=== PATIENT | female | born 1955 | race Caucasian/White ===

== ENCOUNTER 2018-12-11 11:21 | Inpatient (IN) | payer MEDICAID ==
[~2018-12-11] VITALS: Ht 154.9 cm; Wt 72.7 kg
[2018-12-11] MEDS ORDERED: LIDOCAINE 2%HCL (LOCAL ANESTH.) INJ 20ML MDV ONE (13:57)
[2018-12-11] MEDS ORDERED: IOHEXOL 350 MG/ML 100ML IJ ONE ×2 (13:57→14:17)
[2018-12-11] MEDS ORDERED: fentaNYL CITRATE 100 MCG/2 ML VL ONE (14:11)
[2018-12-11] MEDS ORDERED: ANGIOMAX 250 MG VIAL IV ONE (14:11)
[2018-12-11] MEDS ORDERED: SODIUM CHL 0.9% 50 ML ONE (14:11)
[2018-12-11] MEDS ORDERED: MIDAZOLAM HCL 1MG/1ML-2 ML VIAL ONE (14:11)
[2018-12-11] MEDS ORDERED: VERAPAMIL 2.5MG/ML INJ 2ML VIAL IV ONE (14:12)
[2018-12-11] MEDS ORDERED: HEPARIN SODIUM (PORCINE) 5000 UNITS/ML 1ML VIAL ONE (14:14)
[2018-12-11] MEDS ORDERED: ASPirin 325 MG TAB ONE (15:55)
[2018-12-11] MEDS ORDERED: TICAGRELOR 90 MG TAB ONE (15:55)
[2018-12-11] MEDS ORDERED: BACL10TA PO (16:41)
[2018-12-11] MEDS ORDERED: GABA300C10 PO (16:41)
[2018-12-11] MEDS ORDERED: PANT40T PO (16:41)
[2018-12-11] MEDS ORDERED: LISI10TA6 PO (16:41)
[2018-12-11] MEDS ORDERED: METF-371 PO (16:41)
[2018-12-11] MEDS ORDERED: ASPI1TAB19 PO (16:41)
[2018-12-11] MEDS ORDERED: CHOL20009 PO (16:41)
[2018-12-11] MEDS ORDERED: ATOR1TAB PO (16:41)
[2018-12-11] MEDS ORDERED: ERTU15TA PO (16:41)
[2018-12-11] MEDS ORDERED: RANI150C11 PO (16:41)
[2018-12-11] MEDS ORDERED: HYDROcodone-ACET 5/325MG TAB PO PRN (16:45)
[2018-12-11] MEDS ORDERED: DEXTROSE (50%) 50ML SYRG IV PRN (16:45)
[2018-12-11] MEDS ORDERED: MORPHINE SULF INJ 2 MG/ML SYRINGE 1ML IV PRN (16:45)
[2018-12-11] MEDS ORDERED: NITROGLYCERIN 0.4 MG SL TAB SL PRN (16:45)
[2018-12-11] MEDS ORDERED: ACETAMINOPHEN 500 MG TAB PO PRN (16:45)
[2018-12-11] MEDS ORDERED: ONDANSETRON HCL 4 MG/2 ML VIAL IV PRN (16:45)
[2018-12-11] MEDS ORDERED: ZOLPIDEM TARTRATE 5 MG TAB PO PRN (16:45)
[2018-12-11] MEDS: InsuLIN REG 1unit/0.01ml Soln (100units/ml) SC SCH ×2 (17:00→22:00)
--- NOTE | 2018-12-11 17:15 | NUR ---
Telemetry admit from Mail Machine Operator TONY MILLAN admitted to Telemetry unit after SBAR received. Patient oriented to [place], primary RN, unit, room, bed, and unit policies regarding patient care and visiting hours. Patient now on continuous telemetry monitoring, tele box # 1 and telemetry reading on arrival to unit is . Patient placed on bedside oxygen, weighed by bed scale and encouraged to call if they need something. All questions and concerns addressed, patient verbalized understanding.
--- NOTE | 2018-12-11 17:30 | NUR ---
S/P Cardiac Cath Catheter remains in [Right] groin. Patient educated on need to keep leg straight and flat. Patient verbalized understanding. Site assessed for any bleeding, redness or swelling. Pedal pulses on affected leg assessed for positive tissue perfusion. Patient instructed on need to notify staff immediately if any pain, burning or wetness to site, and any lower back pain. Patient educated on new cardiac medications. All questions and concerns addressed, patient verbalized understanding of all education and instruction. See notes for any further.
[2018-12-11] MEDS: SODIUM CHLORIDE 0.9% 1,000 ML IV SCH (17:36)
[2018-12-11] MEDS: ACCU-CHEK COMFORT CURVE STRIP VI SCH ×2 (17:37→22:00)
[2018-12-11 18:09] VITALS: BP 125/57
--- NOTE | 2018-12-11 20:00 | NUR ---
Opening Shift Note Assumed care of patient, awake and alert. No S/S of distress/SOB. Instructed on POC and to call for assist PRN, will continue to monitor for changes Q1hr and PRN. Dressing to right groin clean, dry and intact. Patient complains of pain to the groin. Medicated with Lytle 5/325 mg as ordered. Bed in low position and call light in reach.
[2018-12-11 21:57] VITALS: BP 127/66
[2018-12-11] MEDS ORDERED: BACLOFEN 10 MG TAB PO SCH (22:00)
[2018-12-11] MEDS ORDERED: PATIENTS OWN MEDICATION (Ranitidine Hcl 1 CAP) PO SCH (22:00)
[2018-12-11] MEDS ORDERED: PATIENTS OWN MEDICATION (Atorvastatin Calcium 1 TAB) PO SCH (22:00)
[2018-12-11] MEDS: ATORVASTATIN 20 MG TAB PO SCH (22:06)
[2018-12-11] MEDS: GABAPENTIN 300 MG CAP PO SCH (22:08)
[2018-12-11] MEDS: FAMOTIDINE 20 MG TAB PO SCH (22:09)
[2018-12-11] MEDS: TICAGRELOR 90 MG TAB PO SCH (22:35)
[2018-12-12] MEDS: SODIUM CHLORIDE 0.9% 1,000 ML IV SCH ×3 (02:45→21:37)
[2018-12-12 04:47] VITALS: BP 124/79
[2018-12-12] MEDS: GABAPENTIN 300 MG CAP PO SCH ×3 (06:48→21:32)
[2018-12-12] MEDS: ACCU-CHEK COMFORT CURVE STRIP VI SCH ×4 (06:49→22:15)
[2018-12-12] MEDS: InsuLIN REG 1unit/0.01ml Soln (100units/ml) SC SCH ×4 (06:49→22:16)
[2018-12-12 09:00] VITALS: BP 112/63
[2018-12-12] MEDS: ASPirin-EC 81 mg tab PO SCH (09:23)
[2018-12-12] MEDS: PANTOPRAZOLE 40 MG TAB PO SCH (09:23)
[2018-12-12] MEDS: CHOLECALCIFEROL (VITD3) 1,000 UNIT TAB PO SCH (09:23)
[2018-12-12] MEDS: LISINOPRIL 10 MG TAB PO SCH (09:24)
[2018-12-12] MEDS: STEGLATRO 15 MG PO SCH (09:24)
[2018-12-12] MEDS: TICAGRELOR 90 MG TAB PO SCH ×2 (09:24→21:31)
[2018-12-12] MEDS ORDERED: ERTUGLIFLOZIN PO SCH (10:00)
[2018-12-12] MEDS ORDERED: CHOLECALCIFEROL PO SCH (10:00)
[2018-12-12] MEDS ORDERED: PYROGLUTAMIC A PO SCH (10:00)
[2018-12-12 13:00] VITALS: BP 124/66
[2018-12-12 16:48] VITALS: BP 108/50
[2018-12-12] MEDS ORDERED: TICA90TA PO (17:09)
--- NOTE | 2018-12-12 17:18 | NUR ---
Spoke to Dr. Cai , patient is cleared to discharge to home from cardiology point of view.
--- NOTE | 2018-12-12 17:22 | NUR ---
Spoke to Dr. Renee , patient is cleared to go home and follow up with Dr. Cai on Friday.
[2018-12-12 17:41] VITALS: BP 108/80
--- NOTE | 2018-12-12 18:34 | NUR ---
Spoke to Mary (House Sup) regarding Taxi refused to drop patient at [facility] to get meds, per Mary will talk to a yard truck driver.
--- NOTE | 2018-12-12 19:30 | NUR ---
Opening Shift Note Assumed care of patient, awake and alert. No S/S of SOB or pain. Discharge order present; pt's IV access and telemetry monitoring previously discontinued by day RN. This RN instructed pt on POC and to call for assist PRN, will continue to monitor for changes Q1hr until discharged. Bed in low position, locked. Nurse call light on side of bed. Television on.
--- NOTE | 2018-12-12 19:50 | NUR ---
Ab, RN, resource nurse, working on getting pt cleared to discharge home. Pt lives in [place] and reportedly has no family or friends to take her home and home meds were faxed to [facility] for pick-up on pt's way home. Taxi voucher available, but transport truck driver refusing to go through drive-thru with pt. Pt anxious and easily raises voice and becomes argumentative re. discharge which she states has to happen because her cat has been at her house for 2 days. Later pt admitting a neighbor has been going to her house freq every day 'to check on things.'
--- NOTE | 2018-12-12 20:15 | NUR ---
Ab, RN, spoke to Dr. Abraham and received order to keep pt until tomorrow for pt to be able to have medMitchella with her upon discharge. Ab and this RN in to speak with pt. Pt angry and expressing dissatisfaction. Pt insisting she could get the med in the a.m. then remembered it will be Friday. Then pt stated repeatedly that "nothing will happen in one day...I can get the medicine [later]." This RN explaining repeatedly to pt the need for the medication and the risk of her not having it. Pt conceded but did not agree. Pt refusing IV restart and telemetry.
[2018-12-12] MEDS: ATORVASTATIN 20 MG TAB PO SCH (21:32)
[2018-12-12] MEDS: FAMOTIDINE 20 MG TAB PO SCH (21:32)
[2018-12-12] MEDS: BACLOFEN 10 MG TAB PO SCH (21:32)
[2018-12-12 22:00] VITALS: BP 123/80
--- NOTE | 2018-12-13 01:10 | NUR ---
Nurses alerted to pt's room by pt's room mate calling out. Maria, RN, Pete Portillo, RN, and Manju Carmona, RN responded to room and found pt seated on floor. No apparent injuries. Nurses got pt to standing position, called for this RN who was with new admission, and the team got pt repositioned in bed. VS taken; WNL. Pt mumbling, disoriented. States her first name only correctly. Able to MENJIVAR with purpose and some coordination. No hazards on floor nor liquids. Pt's call light in her bed as before fall.
--- NOTE | 2018-12-13 02:20 | NUR ---
Pt able to follow instructions for NVS; NVS intact. Able to EMNJIVAR with purpose and with equal strength, effort and success. Resumed sleep.
--- NOTE | 2018-12-13 02:23 | NUR ---
Sowmya Santa RN SALES PERSON, hospitalist gambling monitor, returned call. This RN reported pt's prefall activity, medications, fall, and post fall status. Sowmya Santa RN SALES PERSON, stated to observe only/no new orders.
--- NOTE | 2018-12-13 02:40 | NUR ---
Pt now rousing, resistant to being touched, being asked questions though now she is alert and oriented Able to answer to person, situation (admit to hospital), , time of year, who President is. Missed time by one month. Pt refusing to answer questions part of time and asked, "Is this some kind of joke?" Insisting on getting OOB; pt already incontinent of urine. Assisted to BR by ACTUARIAL TECHNICIAN and this RN; wobbly side to side. Voided large amount. Assisted back to bed by this RN alone. Pt climbed back into bed and immediately went to sleep and started snoring.
--- NOTE | 2018-12-13 02:45 | NUR ---
Report given to EBENEZER Martinez as pt being moved to Rm 291 to have sitter as cont to move about in bed with uncoordinated movements and overestimates her own abilities at this time. Room has sitter present with available bed.
--- NOTE | 2018-12-13 02:50 | NUR ---
report given by madelin Loo, as per madelin Loo, pt. refused to put back her tele monitor and iv.
--- NOTE | 2018-12-13 02:50 | NUR ---
Pt roused while this RN present in room; RN told pt she would be moved to a different room. Pt closed eyes and resumed sleep.
--- NOTE | 2018-12-13 03:00 | NUR ---
Pt moved in bed to room 291 by this RN and Yue Núñez RN. Tolerated move well. All pt's belongings moved with her. Hard copy of chart to nurses' station.
--- NOTE | 2018-12-13 03:02 | NUR ---
received pt. from madelin Loo, pt. in stable condition, not in distress, sitter at bedside, to keep monitor.
[2018-12-13 05:24] VITALS: BP 121/66
[2018-12-13] MEDS: GABAPENTIN 300 MG CAP PO SCH ×3 (05:39→22:03)
[2018-12-13] MEDS: InsuLIN REG 1unit/0.01ml Soln (100units/ml) SC SCH ×4 (06:07→22:00)
[2018-12-13] MEDS: ACCU-CHEK COMFORT CURVE STRIP VI SCH ×4 (06:07→22:09)
--- NOTE | 2018-12-13 06:08 | NUR ---
v/s stable, no c/o pain, sitter at bedside, was able to put back tele monitor, pt. refused to insert iv.
--- NOTE | 2018-12-13 07:33 | NUR ---
Opening Shift Note Assumed care of patient, asleep, arouses to name. No S/S of distress/SOB or pain. Bed in lowest and locked position with side rails up x2 and call light in reach. Instructed on POC and to call for assist PRN, will continue to monitor for changes Q1hr and PRN.
[2018-12-13 07:53] LABS: BUN/Creatinine Ratio 26.8; Calcium 9.1 mg/dL (8.5-10.1)
--- NOTE | 2018-12-13 08:30 | NUR ---
PT REFUSING IV ACCESS. THE PT WAS EDUCATED ON THE IMPORTANCE OF THE IV ACCESS AND THE RISKS OF NOT HAVING THE IV IN PLACE. THE PT VERBALIZES UNDERSTANDING AND CONTINUES TO DENY IV ACCESS.
--- NOTE | 2018-12-13 08:48 | NUR ---
PAGED MANUFACTURING QUALITY MANAGER SS REGARDING SS CONSULT FOR BRILINTA AUTHORIZATION.
--- NOTE | 2018-12-13 08:55 | NUR ---
RECEIVED CALL BACK FROM MICHAEL WITH SS REGARDING THE AUTHORIZATION FOR THE BRILINTA.
[2018-12-13 09:00] VITALS: BP 133/71
--- NOTE | 2018-12-13 09:09 | NUR ---
DISCUSSED THE AUTHORIZATION PROCESS WITH STANTON RDORIGUEZ. AWAITING FAX FROM [facility] FOR AUTHORIZATION.
[2018-12-13] MEDS: STEGLATRO 15 MG PO SCH (10:00)
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
[2018-12-13] MEDS: TICAGRELOR 90 MG TAB PO SCH ×2 (10:07→22:03)
[2018-12-13] MEDS: ASPirin-EC 81 mg tab PO SCH (10:08)
[2018-12-13] MEDS: LISINOPRIL 10 MG TAB PO SCH (10:08)
[2018-12-13] MEDS: PANTOPRAZOLE 40 MG TAB PO SCH (10:08)
[2018-12-13] MEDS: CHOLECALCIFEROL (VITD3) 1,000 UNIT TAB PO SCH (10:08)
[2018-12-13] MEDS: BACLOFEN 10 MG TAB PO SCH ×2 (10:08→22:03)
--- NOTE | 2018-12-13 11:00 | NUR ---
PAGED MICHAEL WITH SS REGARDING AUTHORIZATION FOR MEDICATIONS. AWAITING CALL BACK.
--- NOTE | 2018-12-13 11:03 | NUR ---
PAGED DR. Manju PILLAI REGARDING DISCUSSION WITH PATIENT AND SUICIDAL THOUGHTS. UPDATED ON MEDICATION AUTHORIZATION STATUS. NEW ORDERS RECEIVED, READ BACK AND VERIFIED.
--- NOTE | 2018-12-13 11:18 | NUR ---
TELE PSYCH CONSULT IN PLACE. AWAITING CALL BACK.
--- NOTE | 2018-12-13 11:30 | NUR ---
DISCUSSED THE PATIENTS THOUGHTS OF SUICIDE WITH THE PATIENT INTO MORE DEPTH. THE PT STATED "I DON'T WANT TO KILL MYSELF, BUT THE THOUGHT HAS CROSSED MY MIND." THE PT HAS BEEN EDUCATED ON THE USE OF THE TELE PSYCH MACHINE AND THE BENEFITS OF SPEAKING TO THE DOCTOR ON THE TELE PSYCH. THE PATIENT ALSO STATED "I WOULD LIKE TO SPEAK TO A THERAPIST ABOUT MY PROBLEMS". THE PT WAS INFORMED THAT INFORMATION ON SEEKING THERAPEUTIC HELP WILL BE PROVIDED TO HER.
--- NOTE | 2018-12-13 11:35 | NUR ---
TELE PSYCH MACHINE PLACED AT PATIENT BEDSIDE.
--- NOTE | 2018-12-13 12:00 | NUR ---
CALLED AND SPOKE TO PHARMACIST AT [facility] IN [place]. ACCORDING TO THE PHARMACIST THE BRILINTA 90MG IS NOT IN STOCK AT THIS PHARMACY.
--- NOTE | 2018-12-13 12:00 | NUR ---
PT SPOKE TO THE DR ON THE TELE PSYCH MACHINE. AWAITING FAX REPORT.
--- NOTE | 2018-12-13 12:00 | NUR ---
PATIENT GIVEN COMMUNITY RESOURCES ON MENTAL HEALTH.
--- NOTE | 2018-12-13 12:19 | NUR ---
RECEIVED AUTHORIZATION REQUEST FORM FROM [facility] VIA FAX.
--- NOTE | 2018-12-13 12:30 | NUR ---
PATIENT GIVEN A DISCOUNT PAMPHLET ON THE MEDICATION BRILINTA.
[2018-12-13 13:00] VITALS: BP 133/78
--- NOTE | 2018-12-13 13:00 | NUR ---
AUTHORIZATION REQUEST PAPER WORK FAXED TO [facility] AND PLACED IN CHART.
--- NOTE | 2018-12-13 13:20 | NUR ---
CALLED [facility] TO CONFIRM THAT THE PATIENTS MEDICATIONS HAVE BEEN CALLED IN TO THE PHARMACY. THE WEATHERSTRIP MACHINE OPERATOR CONFIRMS THAT THE MEDICATIONS CAN BE PICKED UP AT THE [facility] WITH THE ADDRESS [id number] [address] IN [place] AFTER THE BRILINTA HAS BEEN AUTHORIZED BY THE INSURANCE.
[2018-12-13] MEDS ORDERED: SERT50TA PO (14:15)
[2018-12-13] MEDS ORDERED: SERTRALINE HCL 50 MG TAB PO ONE (14:15)
--- NOTE | 2018-12-13 15:58 | NUR ---
CALLED AND SPOKE TO DR. Manju PILLAI. UPDATED ON THE PRESCRIPTION AUTHORIZATION STATUS. STATES THAT HE WILL CALL AND SPEAK TO THE PHARMACIST. Addendum: 12/13/18 at 1957 by BRYSON RUGGIERO RN RN WRONG TIME. CORRECT TIME IS 1004
--- NOTE | 2018-12-13 16:13 | NUR ---
RECEIVED TELE PSYCH REPORT. MD NOTIFIED AND MD AWARE THAT REPORT HAS BEEN RECEIVED. NO NEW ORDERS AT THIS TIME.
--- NOTE | 2018-12-13 16:20 | NUR ---
RECEIVED CALL FROM [facility] SYSTEM ADMINISTRATION MANAGER, RAUL. ACCORDING TO RAUL, THE BRILINTA 90MG PRESCRIPTION IS COVERED UNDER A FORMULARY MEDICATION THROUGH THE INSURANCE AND THERE IS NO NEED FOR AN AUTHORIZATION NUMBER. RAUL WITH [facility] CAN BE REACHED AT [phone].
[2018-12-13 17:00] VITALS: BP 110/77
--- NOTE | 2018-12-13 17:37 | NUR ---
CALLED [facility] AND SPOKE TO THE PHARMACIST. ACCORDING TO THE PHARMACIST THE MEDICATION STILL NEEDS AN AUTHORIZATION NUMBER TO FULL FILL THE PRESCRIPTION.
--- NOTE | 2018-12-13 17:46 | NUR ---
CALLED AND SPOKE TO RAUL WITH [facility]. ACCORDING TO RAUL SHE WILL CALL [facility] AND SPEAK TO THE PHARMACIST ABOUT THE BRILINTA PRESCRIPTION.
--- NOTE | 2018-12-13 17:56 | NUR ---
RECEIVED CALL FROM RAUL WITH [facility]. SHE WAS ABLE TO DISCUSS THE CASE WITH THE [facility] PHARMACIST. ACCORDING TO RAUL, THE PHARMACY CAN NOT AUTHORIZE THE MEDICATION UNTIL THE MORNING. RAUL STATED THAT THE MEDICATION DOES NOT NEED AN AUTHORIZATION NUMBER AND SHE IS UNABLE TO DO ANYTHING ELSE AT THIS TIME.
--- NOTE | 2018-12-13 18:10 | NUR ---
RECEIVED A COMBINED CALL WITH DR. PILLAI AND THE [facility] PHARMACIST. THE PHARMACIST CONTINUES TO STATE THE THE MEDICATION CAN NOT BE PROCESSED UNTIL THE MORNING. DR. PILLAI VERBALIZED UNDERSTANDING AND TO HOLD D/C UNTIL TOMORROW.
--- NOTE | 2018-12-13 18:30 | NUR ---
UPDATED THE PATIENT ON THE MEDICATION AUTHORIZATION. THE PT PRESENTS UPSET, BUT VERBALIZES UNDERSTANDING.
--- NOTE | 2018-12-13 19:30 | NUR ---
ENDORSED CARE TO THE TAPER MACHINE RNMOISE.
--- NOTE | 2018-12-13 19:40 | NUR ---
Opening Shift Note Assumed care of patient, awake and alert, ambulatory. No S/S of distress/SOB or pain. Instructed on POC and to call for assist PRN, patient verbalized understanding, call light within reach, will continue to monitor for changes Q1hr and PRN.
[2018-12-13] MEDS: FAMOTIDINE 20 MG TAB PO SCH (22:03)
[2018-12-13] MEDS: ATORVASTATIN 20 MG TAB PO SCH (22:03)
[2018-12-13 22:08] VITALS: BP 102/55
[2018-12-14 06:15] VITALS: BP 136/70
[2018-12-14] MEDS: ACCU-CHEK COMFORT CURVE STRIP VI SCH ×2 (06:27→11:39)
[2018-12-14] MEDS: GABAPENTIN 300 MG CAP PO SCH (06:27)
[2018-12-14] MEDS: InsuLIN REG 1unit/0.01ml Soln (100units/ml) SC SCH ×2 (06:27→11:40)
--- NOTE | 2018-12-14 07:25 | NUR ---
Open Shift Note Received report on patient, awake and standing in bathroom. Patient shows no signs of distress at this time. Discussed POC with patient and transition nurse Rachel for plans to discharge once Sadiq is authorized at pharmacy. Patient verbalized understanding. Bed in lowest locked position, side rails up x2 and call light within reach. Will continue to monitor.
[2018-12-14 09:00] VITALS: BP 109/60
--- NOTE | 2018-12-14 09:39 | NUR ---
Called Gerald Called and spoke with pharmacist and confirmed that patient's prescription for Brilinta is authorized. Pharmacist stated they will fill the prescription.
--- NOTE | 2018-12-14 09:45 | NUR ---
Paged Jarad Paged Dr Abraham Abraham top inform him that patient's Brilinta was authorized.
[2018-12-14] MEDS ORDERED: SERTRALINE HCL 50 MG TAB PO SCH (10:00)
[2018-12-14] MEDS: STEGLATRO 15 MG PO SCH (10:00)
--- NOTE | 2018-12-14 10:20 | NUR ---
Jarad Returned Call Dr Abraham Abraham returned call and stated patient is cleared for discharge today.
[2018-12-14] MEDS: ASPirin-EC 81 mg tab PO SCH (10:21)
[2018-12-14] MEDS: BACLOFEN 10 MG TAB PO SCH (10:21)
[2018-12-14] MEDS: LISINOPRIL 10 MG TAB PO SCH (10:22)
[2018-12-14] MEDS: PANTOPRAZOLE 40 MG TAB PO SCH (10:22)
[2018-12-14] MEDS: CHOLECALCIFEROL (VITD3) 1,000 UNIT TAB PO SCH (10:23)
[2018-12-14] MEDS: TICAGRELOR 90 MG TAB PO SCH (11:46)
--- NOTE | 2018-12-14 13:49 | NUR ---
Discharged Discharge instructions given as ordered. Encourage to follow up with PMD and auto body service mechanic as instructed. All questions and concerns addressed. Patient verbalized understanding. Medication reconciliation form completed and copy given to patient. IV previously removed. Telemetry unit returned to ICU. Patient taken to lobby with all personal belongings, accompanied by staff member to wait for taxi to arrive.
--- NOTE | 2018-12-14 15:06 | NUR ---
D/C Planning Per consult for follow up psych recommendation which includes referral to outpatient follow up in the next 1 to 2 weeks. Recommended referral for outpatient mental health one to one counseling and for home health visits to provide patient with additional support. Contacted [facility] and [place]. [facility] and [facility] are unable to take Pt at this time. Per Melody [facility] Ph:) Fax:( [phone]) Pt has been accepted and service to start within 48hrs upon d/c day. Contacted and referral Pt to [facility] Ph:( [phone]) spoke to Deepika. Deepika advised me they will be contacting Pt and will arranging appointment for behavior health care . Contacted Dr. Isaías Rudolph office Ph:) spoke to Yolanda. Advised Yolanda from MD office to arrange follow up appointment in the next 1 to 2 weeks. Per Yolanda from MD Office Pt appointment will be 12/28/18 at 13:[address] [facility] ([place], [place]) [address]. Pt was advised at bedside regarding her appointment and home health. Pt verbalize understanding. Addendum: 12/14/18 at 1535 by BLAYNE SARMIENTO Amended: Links added.
--- NOTE | 2018-12-14 16:17 | NUR ---
debt collection specialist 12/13/18 While debt collection specialist i received a page from Maida [employer] stating patient needs prior auth for Sad[employer]. Per Elisa at [facility] debt collection specialist corrections caseworker she will fax Maida [facility] prior auth form. I informed Maida to fill out and have MD sign and fax back. Patients prior auth was approved by [facility]. Addendum: 12/14/18 at 1620 by Dian EID Amended: Links added.
--- NOTE | 2018-12-14 17:15 | NUR ---
assessment Patient discharged home prior to being assessed. Addendum: 12/14/18 at 1716 by Dian EID Amended: Links added.
[2018-12-16] MEDS ORDERED: SERTRALINE HCL 50 MG TAB PO SCH (10:00)
== END 2018-12-14 13:50 | disposition home health service (06) | DRG 175 ==
LOC: CATH 11:21 → TELE-EAST 11:22 → TELE-WESTW 12-13 03:08
PROVIDERS: ADMIT Internal Medicine Cardiovascular Disease; ATTEND Internal Medicine
PROC: 027034Z Dilation of Coronary Artery, One Artery with Drug-eluting Intraluminal Device, Percutaneous Approach (ICD-10-PCS; principal; 2018-12-11)
PROC: 4A023N7 Measurement of Cardiac Sampling and Pressure, Left Heart, Percutaneous Approach (ICD-10-PCS; 2018-12-11)
PROC: B2111ZZ Fluoroscopy of Multiple Coronary Arteries using Low Osmolar Contrast (ICD-10-PCS; 2018-12-11)
PROC: B2151ZZ Fluoroscopy of Left Heart using Low Osmolar Contrast (ICD-10-PCS; 2018-12-11)
PROC: 4A033BC Measurement of Arterial Pressure, Coronary, Percutaneous Approach (ICD-10-PCS; 2018-12-11)
DX: I25.10 Atherosclerotic heart disease of native coronary artery without angina pectoris (principal); E11.42 Type 2 diabetes mellitus with diabetic polyneuropathy; E78.5 Hyperlipidemia, unspecified; I10 Essential (primary) hypertension; F17.210 Nicotine dependence, cigarettes, uncomplicated; I49.3 Ventricular premature depolarization; F34.1 Dysthymic disorder; Z82.49 Family history of ischemic heart disease and other diseases of the circulatory system
CPT/HCPCS: 36415; 80048; 82962; 92928; 93005; 93458; 93571; 99152; C1874; G0378; J1815; J2250